=== PATIENT | female | born 1980 | race Caucasian/White ===

== ENCOUNTER 2017-06-11 17:56 | Emergency (ER) | payer SELFPAY ==
[2017-06-11] MEDS ORDERED: ONDANSETRON DISINTEGRATING 4 MG TAB PO ONE (19:19)
--- NOTE | 2017-06-11 19:29 | EDPHY ---
H & P Time Seen by Provider: 06/11/17 18:45 HPI/ROS: CHIEF COMPLAINT: Head injury, neck pain HISTORY OF PRESENT ILLNESS: 36-year-old female presents to the emergency department by private vehicle with her complaining of worsening headache after hitting her head 3 days ago. Patient states that she stood up very quickly and hit the left posterior aspect of her head. She saw "stars" although did not lose consciousness. She states 2 weeks prior she fell into a window sill and hit the same spot on the back of her head. She states that it took her almost full 2 weeks to recover. She was still having lingering headaches and feeling nauseous. She has been having visual changes including double and blurry vision. She feels nauseous although no vomiting. She denies chest pain or difficulty breathing. Denies abdominal pain. Her last menstrual period was 3 weeks ago and she denies . Denies injury to her upper lower extremities although has occasionally had tingling sensation in her hands. She does not feel weak in her upper or lower extremities however. She has had numerous concussions. REVIEW OF SYSTEMS: Constitutional: No fever, no chills. Eyes: No double or blurry vision. ENT: No sore throat. Respiratory: No cough, no shortness of breath. Cardiac: No chest pain. Gastrointestinal: No abdominal pain, vomiting or diarrhea. Genitourinary: No dysuria. Musculoskeletal: Back pain as above. No back pain. Skin: No rashes. Neurological: headache. Past Medical/Surgical History: Multiple concussions Social History: , manages a restaurant in [place] Smoking Status: Current every day smoker Physical Exam: General Appearance: Alert, no distress. Resting in a darkened room. She is mentating normally and answering questions appropriately. She has a cervical collar in place. Eyes: Pupils equal and round. Extraocular motions are all intact. ENT: Mouth: Mucous membranes moist. Respiratory: No wheezing, rhonchi, or rales, lungs are clear to auscultation. Cardiovascular: Regular rate and rhythm. Gastrointestinal: Abdomen is soft and nontender, no masses, no rebound or guarding, bowel sounds normal. Neurological: Alert and oriented x 3, cranial nerves II through XII grossly intact Skin: Warm and dry, no rashes. Musculoskeletal: Diffusely tender to palpate along cervical spine. Nontender to palpate along the lumbar or thoracic spine. No palpable crepitus or other bony abnormality. Extremities: Full range of motion and no peripheral edema. Normal and equal strength for the upper extremities bilaterally. Psychiatric: Patient is oriented X 3, there is no agitation. Constitutional: Initial Vital Signs Temperature (C) 36.8 C 06/11/17 18:07 Heart Rate 100 06/11/17 18:07 Respiratory Rate 20 06/11/17 18:07 Blood Pressure 116/88 H 06/11/17 18:07 O2 Sat (%) 98 06/11/17 18:07 O2 Delivery Mode Room Air Allergies/Adverse Reactions: acetaminophen [From Vicodin] Allergy (Verified 06/11/17 18:06) codeine [Codeine] Allergy (Verified 06/11/17 18:06) hydrocodone bitartrate [From Vicodin] Allergy (Verified 06/11/17 18:06) oxycodone HCl [From Percocet] Allergy (Verified 06/11/17 18:06) Home Medications: Medication Instructions Recorded None 03/13/11 Medical Decision Making ED Course/Re-evaluation: 36-year-old female presents to the emergency department with worsening headache after she hit her head twice within the last 2 weeks. She feels nauseous. She has a frontal headache. The patient has a history of multiple concussions. Discussed the pros and cons of CT imaging of her brain including radiation exposure the patient agrees with CT scan. The patient also have CT imaging of cervical spine given her history of trauma and extreme tenderness with palpation diffusely along cervical spine. Her cervical collar was kept in place. CT imaging of the head and cervical spine reveal no intracranial bleeding or signs of fracture. Her cervical collar was removed. Patient demonstrated full range of motion of her neck with minimal pain. Patient was given referral to Dr. Nereyda Carmen for closed head injury. She was also given closed-head injury precautions and told to return if she developed worsening headache, vomiting, altered mental status or any other concerns. Her was at bedside verbalized understanding and agreed. Differential Diagnosis: Head injury including but not limited to concussion, skull fracture, intraparenchymal contusion, subarachnoid, subdural and epidural hematoma. Neck pain including but not limited to muscular pain, herniated disc, spine fracture - Data Points Medications Given: Discontinued Medications Ondansetron HCl (Zofran Odt) 4 mg PO EDNOW ONE Stop: 06/11/17 19:20 Last Admin: 06/11/17 19:32 Dose: 4 mg Departure - Departure Disposition: Home, Routine, Self-Care Clinical Impression: Head injury Qualifiers: Encounter type: initial encounter Qualified Code(s): S09.90XA - Unspecified injury of head, initial encounter Cervical strain Qualifiers: Encounter type: initial encounter Qualified Code(s): S16.1XXA - Strain of muscle, fascia and tendon at neck level, initial encounter Condition: Good Instructions: Cervical Strain (ED), Concussion (ED), Head Injury (ED), Acute Neck Pain (ED) Additional Instructions: Avoid any activity that might put you at risk for another head injury for at least 1 week. Return to the emergency department if you develop worsening headache, vomiting, altered mental status, or if you feel worse in any way. Referrals: Otis Tavarez MD [Primary Care Provider] - As per Instructions Nereyda Carmen MD [Medical Doctor] - As per Instructions (Traumatic brain injury specialist)
[2017-06-11 20:48] VITALS: BP 104/64; PULSE 70; RESP 16; TEMP 97.9; O2SAT 95
== END 2017-06-11 20:32 | disposition home or self-care (01) ==
DX: S09.90XA Unspecified injury of head, initial encounter (principal); S16.1XXA Strain of muscle, fascia and tendon at neck level, initial encounter; F17.200 Nicotine dependence, unspecified, uncomplicated; W22.8XXA Striking against or struck by other objects, initial encounter